=== PATIENT | female | born 1965 | race African-American/Black ===

== ENCOUNTER 2020-12-10 17:18 | Observation (INO) ==
[2020-12-10 20:03] LABS: Basophils # 0.1 10*3/uL (0.0-0.2); Basophils % 0.6 % (0.0-0.8); Eosinophils # 0.7 10*3/uL (0.0-0.87); Eosinophils % 5.4 % (0.00-10.9); Hematocrit 44.8 VOL% (35.7-47.0); Hemoglobin 14.7 GM/DL (12.0-16.0); Immature Granulocytes % 0.6 %; Immature Granulocytes Absolute 0.07 #; Lymphocytes # 1.5 10*3/uL (1.4-4.0); Lymphocytes % 11.9 % (21.3-54.2); Mean Corpuscular HGB Conc 32.8 GM/DL (32-36); Mean Corpuscular Volume 80.9 FL (87-102); Neutrophils % 73.5 % (38.7-73.9); Platelet Count 304 T/CUMM (130-400); Red Blood Count 5.54 MC/CUMM (3.8-5.5); Red Cell Distribution Width 13.2 % (9.3-17.3); White Blood Count 12.4 T/CUMM (4-12)
[2020-12-10] MEDS ORDERED: MORPHINE 4 MG/1 ML VIAL IV STA (20:19)
[2020-12-10] MEDS ORDERED: ONDANSETRON 4 MG/2 ML VIAL IV STA (20:19)
[2020-12-10 20:25] LABS: Albumin 3.6 G/DL (3.4-5.0); Bilirubin,Total 0.4 MG/DL (0.2-1.0); Calcium 9.7 MG/DL (8.5-10.1); Osmolality,Calculated 265.4 MOS/KG (273-304); Potassium 3.6 MMOL/L (3.5-5.1); Total Protein 8.8 G/DL (6.4-8.2)
[2020-12-10 20:39] LABS: PT Patient Result 11.7 SECS (10.5-12.0)
[2020-12-10] MEDS ORDERED: GLUCAGON 1 MG VIAL IM PRN (23:33)
[2020-12-10] MEDS ORDERED: DEXTROSE 50% 25 GM/50 ML VIAL IV PRN (23:33)
[2020-12-10] MEDS ORDERED: ENOXAPARIN 100 MG/ML SYRINGE SUBCUT STA (23:33)
[2020-12-11] MEDS: ONDANSETRON 4 MG/2 ML VIAL IV PRN ×3 (00:40→16:54)
[2020-12-11 09:40] LABS: Basophils # 0.1 10*3/uL (0.0-0.2); Basophils % 0.5 % (0.0-0.8); Eosinophils # 0.4 10*3/uL (0.0-0.87); Eosinophils % 3.8 % (0.00-10.9); Hematocrit 42.1 VOL% (35.7-47.0); Hemoglobin 13.5 GM/DL (12.0-16.0); Immature Granulocytes % 0.6 %; Immature Granulocytes Absolute 0.07 #; Lymphocytes # 1.1 10*3/uL (1.4-4.0); Lymphocytes % 9.3 % (21.3-54.2); Mean Corpuscular HGB Conc 32.1 GM/DL (32-36); Mean Corpuscular Volume 81.7 FL (87-102); Mean Platelet Volume 9.3 FL (9.6-12.0); Neutrophils % 78.8 % (38.7-73.9); Platelet Count 318 T/CUMM (130-400); Red Blood Count 5.15 MC/CUMM (3.8-5.5); Red Cell Distribution Width 13.2 % (9.3-17.3); White Blood Count 11.7 T/CUMM (4-12)
[2020-12-11 09:58] LABS: Albumin 3.1 G/DL (3.4-5.0); Bilirubin,Total 0.4 MG/DL (0.2-1.0); Calcium 9.9 MG/DL (8.5-10.1); Osmolality,Calculated 269.2 MOS/KG (273-304); Potassium 4.6 MMOL/L (3.5-5.1); Total Protein 7.7 G/DL (6.4-8.2)
[2020-12-11] MEDS: ENOXAPARIN 60 MG/0.6 ML SYRINGE SUBCUT SCH ×2 (11:10→23:17)
[2020-12-11] MEDS: MORPHINE 4 MG/1 ML VIAL IV PRN ×2 (16:54→18:01)
[2020-12-12] MEDS ORDERED: METOPROLOL SUCCINATE XL 25 MG TABLET PO SCH (09:00)
[2020-12-12] MEDS ORDERED: PANTOPRAZOLE 40 MG TABLET PO SCH (09:00)
[2020-12-12] MEDS ORDERED: FUROSEMIDE 40 MG/4 ML VIAL IV ONE (10:12)
[2020-12-12] MEDS ORDERED: methylPREDNISolone SOD SUC 40 MG/1 ML VIAL IV SCH (10:30)
[2020-12-12] MEDS: ENOXAPARIN 60 MG/0.6 ML SYRINGE SUBCUT SCH (10:34)
[2020-12-12 11:29] VITALS: BP 128/77
== END 2020-12-12 14:05 | disposition home or self-care (01) ==
LOC: N.ED 17:18 → N.EDINP 17:18 → N.4E 12-11 07:14
PROVIDERS: ADMIT Family Medicine; ATTEND Family Medicine

== ENCOUNTER 2020-12-24 20:02 | Inpatient (IN) ==
[2020-12-24 20:31] LABS: Basophils # 0.1 10*3/uL (0.0-0.2); Basophils % 0.3 % (0.0-0.8); Eosinophils # 1.2 10*3/uL (0.0-0.87); Hematocrit 39.1 VOL% (35.7-47.0); Hemoglobin 12.5 GM/DL (12.0-16.0); Immature Granulocytes % 0.8 %; Immature Granulocytes Absolute 0.14 #; Lymphocytes # 1.6 10*3/uL (1.4-4.0); Lymphocytes % 9.3 % (21.3-54.2); Mean Corpuscular Volume 81.3 FL (87-102); Mean Platelet Volume 9.5 FL (9.6-12.0); Monocytes % 7.5 % (1.7-12.7); Neutrophils % 75.1 % (38.7-73.9); Platelet Count 85 T/CUMM (130-400); Red Blood Count 4.81 MC/CUMM (3.8-5.5); Red Cell Distribution Width 13.9 % (9.3-17.3); White Blood Count 17.1 T/CUMM (4-12)
[2020-12-24 20:47] LABS: Albumin 2.4 G/DL (3.4-5.0); Bilirubin,Total 0.4 MG/DL (0.2-1.0); Osmolality,Calculated 269.4 MOS/KG (273-304); Potassium 4.9 MMOL/L (3.5-5.1)
[2020-12-24] MEDS ORDERED: ALBUTEROL/IPRATROPIUM 3 ML NEB RESP TX STA (20:53)
[2020-12-24] MEDS ORDERED: MORPHINE 4 MG/1 ML VIAL IV STA (20:53)
[2020-12-24] MEDS ORDERED: PIPERACILLIN/TAZOBACTAM 3,375 MG in SODIUM CHLORIDE 0.9% 100 ML IV STA (20:53)
[2020-12-24] MEDS ORDERED: FUROSEMIDE 40 MG/4 ML VIAL IV STA (20:53)
[2020-12-24] MEDS ORDERED: methylPREDNISolone SOD SUC 125 MG/2 ML VIAL IV STA (20:53)
[2020-12-24] MEDS ORDERED: ONDANSETRON 4 MG/2 ML VIAL IV STA (20:53)
[2020-12-24 21:18] LABS: INR 1.3; PT Patient Result 14.1 SECS (10.5-12.0)
[2020-12-24 21:46] LABS: Allen Test Positive
[2020-12-24 21:47] LABS: ABG HCO3 24.5 MMOL/L (20-26); ABG Oxygen Saturation 60.1 % (95-100); ABG PCO2 36.3 MM HG (35-48); ABG PH 7.443 (7.35-7.45); ABG TCO2 22.1 MMOL/L (23-27)
[2020-12-24 21:50] LABS: ABG PO2 32.8 MM HG (80-95)
[2020-12-24] MEDS ORDERED: ALBUTEROL/IPRATROPIUM 3 ML NEB RESP TX PRN (23:21)
[2020-12-24] MEDS ORDERED: GLUCAGON 1 MG VIAL IM PRN (23:25)
[2020-12-24] MEDS ORDERED: DEXTROSE 50% 25 GM/50 ML VIAL IV PRN (23:25)
[2020-12-24] MEDS ORDERED: ACETAMINOPHEN 325 MG TABLET PO PRN (23:26)
[2020-12-24] MEDS ORDERED: DOCUSATE SODIUM 100 MG CAPSULE PO PRN (23:26)
[2020-12-24] MEDS ORDERED: hydrALAZINE 20 MG/1 ML VIAL IV PRN (23:26)
[2020-12-24] MEDS ORDERED: SODIUM CHLORIDE 0.9% 1,000 ML IV SCH (23:30)
[2020-12-24] MEDS ORDERED: LEVOFLOXACIN INJ 750 MG/150 ML PREMIX IV SCH (23:30)
[2020-12-25] MEDS: ONDANSETRON 4 MG/2 ML VIAL IV PRN ×3 (00:05→20:42)
[2020-12-25] MEDS ORDERED: NITROGLYCERIN SL 0.4 MG TABLET SL PRN (02:00)
[2020-12-25] MEDS ORDERED: CYCLOBENZAPRINE 10 MG TABLET PO PRN (02:00)
[2020-12-25 02:17] LABS: Basophils % 0.3 % (0.0-0.8); Eosinophils # 0.1 10*3/uL (0.0-0.87); Eosinophils % 0.3 % (0.00-10.9); Hematocrit 37.4 VOL% (35.7-47.0); Immature Granulocytes Absolute 0.14 #; Lymphocytes # 0.8 10*3/uL (1.4-4.0); Lymphocytes % 5.7 % (21.3-54.2); Mean Corpuscular HGB Conc 32.1 GM/DL (32-36); Mean Corpuscular Volume 81.8 FL (87-102); Mean Platelet Volume 11.1 FL (9.6-12.0); Monocytes % 1.3 % (1.7-12.7); Neutrophils % 91.4 % (38.7-73.9); Platelet Count 66 T/CUMM (130-400); Red Blood Count 4.57 MC/CUMM (3.8-5.5); White Blood Count 14.7 T/CUMM (4-12)
[2020-12-25 02:37] LABS: Albumin 2.3 G/DL (3.4-5.0); Bilirubin,Total 0.4 MG/DL (0.2-1.0); Calcium 9.2 MG/DL (8.5-10.1); Osmolality,Calculated 272.2 MOS/KG (273-304); Potassium 4.9 MMOL/L (3.5-5.1); Total Protein 6.9 G/DL (6.4-8.2)
[2020-12-25 02:42] LABS: Lymphocytes 2 % (20-55); Microcytosis Slight; Platelet Estimate Decreased; Segmented Neutrophils 95 % (50-85); Total Cells Counted 100
[2020-12-25] MEDS: SODIUM CHLORIDE 0.9% 1,000 ML IV SCH ×3 (03:28→20:46)
[2020-12-25] MEDS: PIPERACILLIN/TAZOBACTAM 3,375 MG in SODIUM CHLORIDE 0.9% 100 ML IV SCH ×3 (06:03→20:46)
[2020-12-25] MEDS ORDERED: FUROSEMIDE 20 MG/2 ML VIAL IV SCH ×2 (08:00→09:00)
[2020-12-25] MEDS ORDERED: APIXABAN 5 MG TABLET PO SCH (09:00)
[2020-12-25] MEDS: TRIAMCINOLONE 0.1% CREAM 15 GM TUBE TOP SCH (09:14)
[2020-12-25] MEDS: PANTOPRAZOLE 40 MG TABLET PO SCH (09:14)
[2020-12-25 09:37] LABS: Bilirubin,Urine Negative (Negative); Blood, Urine Small mg/dL (Negative); Glucose,Urine (UA) Negative (Negative); Ketones,Urine Negative (Negative); Mucus,Urine Occasional /LPF (Occasional); Nitrite,Urine Negative (Negative); Protein,Urine Negative; RBC,Urine 3 /HPF (0-4); Squamous Epithelial Cell,Urine Few /HPF (0-10); Urine Appearance CLEAR (Clear); Urine Color Yellow (Yellow); Urine Specific Gravity 1.014 (1.001-1.035); Urine Urobilinogen < 2.0 EU/DL (0.2-1.0)
[2020-12-25] MEDS: ALBUTEROL/IPRATROPIUM 3 ML NEB RESP TX SCH ×2 (13:30→19:56)
[2020-12-25 14:57] LABS: ABG Base Excess -3.5 MMOL/L (-2.5-2.5); ABG HCO3 21.4 MMOL/L (20-26); ABG Oxygen Saturation 95.2 % (95-100); ABG PH 7.392 (7.35-7.45); ABG PO2 75.7 MM HG (80-95); ABG TCO2 18.5 MMOL/L (23-27)
[2020-12-25] MEDS: CETIRIZINE 10 MG TABLET PO SCH (20:44)
[2020-12-25] MEDS: GABAPENTIN 300 MG CAPSULE PO SCH (20:45)
[2020-12-25] MEDS ORDERED: METOPROLOL SUCCINATE XL 25 MG TABLET PO SCH (21:00)
[2020-12-26] MEDS: ALBUTEROL/IPRATROPIUM 3 ML NEB RESP TX SCH ×4 (00:35→19:38)
[2020-12-26] MEDS: SODIUM CHLORIDE 0.9% 1,000 ML IV SCH ×3 (04:30→20:51)
[2020-12-26 05:38] LABS: Basophils # 0.1 10*3/uL (0.0-0.2); Basophils % 0.3 % (0.0-0.8); Eosinophils # 0.8 10*3/uL (0.0-0.87); Eosinophils % 4.2 % (0.00-10.9); Hematocrit 32.8 VOL% (35.7-47.0); Hemoglobin 10.4 GM/DL (12.0-16.0); Immature Granulocytes % 1.9 %; Immature Granulocytes Absolute 0.36 #; Lymphocytes # 1.7 10*3/uL (1.4-4.0); Lymphocytes % 8.6 % (21.3-54.2); Mean Corpuscular HGB Conc 31.7 GM/DL (32-36); Mean Corpuscular Volume 82.4 FL (87-102); Monocytes % 8.4 % (1.7-12.7); NRBC # 0.02 10*3/uL; Neutrophils % 76.6 % (38.7-73.9); Red Blood Count 3.98 MC/CUMM (3.8-5.5); Red Cell Distribution Width 14.5 % (9.3-17.3); White Blood Count 19.3 T/CUMM (4-12)
[2020-12-26 05:48] LABS: Platelet Count 47 T/CUMM (130-400)
[2020-12-26 06:00] LABS: Albumin 2.2 G/DL (3.4-5.0); Bilirubin,Total 0.8 MG/DL (0.2-1.0); Calcium 8.8 MG/DL (8.5-10.1); Osmolality,Calculated 276.7 MOS/KG (273-304); Potassium 5.1 MMOL/L (3.5-5.1); Total Protein 6.1 G/DL (6.4-8.2)
[2020-12-26 06:18] LABS: Anisocytosis 1+; Platelet Estimate Decreased
[2020-12-26 06:19] LABS: Burr Cells Few; Poikilocytosis Slight
[2020-12-26] MEDS: PIPERACILLIN/TAZOBACTAM 3,375 MG in SODIUM CHLORIDE 0.9% 100 ML IV SCH ×3 (06:41→20:53)
[2020-12-26] MEDS: PANTOPRAZOLE 40 MG TABLET PO SCH (09:09)
[2020-12-26] MEDS: TRIAMCINOLONE 0.1% CREAM 15 GM TUBE TOP SCH (09:09)
[2020-12-26] MEDS: MORPHINE 4 MG/1 ML VIAL IV PRN ×3 (10:22→20:52)
[2020-12-26] MEDS: ONDANSETRON 4 MG/2 ML VIAL IV PRN ×3 (10:26→20:52)
[2020-12-26 16:22] LABS: Glucose,Pleural Fluid < 2 MG/DL; LDH,Body Fluid > 4000 U/L; Total Protein,Body Fluid 4.4 G/DL
[2020-12-26 16:53] LABS: RBC,Pleural Fluid > 100000 T/CUMM
[2020-12-26 18:28] LABS: Eosinophils,Pleural Fluid 4 %; Lymphocytes,Pleural Fluid 13 %; Monocytes,Pleural Fluid 15 %; Neutrophils,Pleural Fluid 68 %
[2020-12-26] MEDS: METOPROLOL SUCCINATE XL 25 MG TABLET PO SCH (20:51)
[2020-12-26] MEDS: GABAPENTIN 300 MG CAPSULE PO SCH (20:51)
[2020-12-26] MEDS: CETIRIZINE 10 MG TABLET PO SCH (20:52)
[2020-12-27] MEDS: ALBUTEROL/IPRATROPIUM 3 ML NEB RESP TX SCH ×4 (01:13→19:54)
[2020-12-27 02:07] LABS: Basophils # 0.1 10*3/uL (0.0-0.2); Basophils % 0.4 % (0.0-0.8); Eosinophils # 1.5 10*3/uL (0.0-0.87); Hemoglobin 9.8 GM/DL (12.0-16.0); Immature Granulocytes % 1.9 %; Immature Granulocytes Absolute 0.32 #; Lymphocytes # 1.4 10*3/uL (1.4-4.0); Lymphocytes % 8.3 % (21.3-54.2); Mean Corpuscular HGB Conc 31.6 GM/DL (32-36); Mean Corpuscular Volume 82.7 FL (87-102); NRBC # 0.03 10*3/uL; Neutrophils % 72.4 % (38.7-73.9); Platelet Count 45 T/CUMM (130-400); Red Blood Count 3.75 MC/CUMM (3.8-5.5); Red Cell Distribution Width 14.6 % (9.3-17.3); White Blood Count 16.4 T/CUMM (4-12)
[2020-12-27 02:34] LABS: Calcium 8.2 MG/DL (8.5-10.1); Osmolality,Calculated 266.4 MOS/KG (273-304); Potassium 4.9 MMOL/L (3.5-5.1)
[2020-12-27] MEDS: SODIUM CHLORIDE 0.9% 1,000 ML IV SCH (03:13)
[2020-12-27] MEDS: MORPHINE 4 MG/1 ML VIAL IV PRN (05:45)
[2020-12-27] MEDS: PIPERACILLIN/TAZOBACTAM 3,375 MG in SODIUM CHLORIDE 0.9% 100 ML IV SCH ×3 (05:49→20:50)
[2020-12-27] MEDS: METOPROLOL SUCCINATE XL 25 MG TABLET PO SCH ×2 (09:10→20:50)
[2020-12-27] MEDS: PANTOPRAZOLE 40 MG TABLET PO SCH (09:11)
[2020-12-27] MEDS: TRIAMCINOLONE 0.1% CREAM 15 GM TUBE TOP SCH (09:13)
[2020-12-27] MEDS: GABAPENTIN 300 MG CAPSULE PO SCH (20:50)
[2020-12-27] MEDS: CETIRIZINE 10 MG TABLET PO SCH (20:50)
[2020-12-27] MEDS: APIXABAN 5 MG TABLET PO SCH (20:50)
[2020-12-28] MEDS: ALBUTEROL/IPRATROPIUM 3 ML NEB RESP TX SCH ×2 (01:54→07:40)
[2020-12-28] MEDS: PIPERACILLIN/TAZOBACTAM 3,375 MG in SODIUM CHLORIDE 0.9% 100 ML IV SCH (04:18)
[2020-12-28 05:22] LABS: Basophils # 0.1 10*3/uL (0.0-0.2); Basophils % 0.4 % (0.0-0.8); Hematocrit 28.6 VOL% (35.7-47.0); Hemoglobin 9.4 GM/DL (12.0-16.0); Immature Granulocytes % 1.4 %; Immature Granulocytes Absolute 0.22 #; Lymphocytes # 1.2 10*3/uL (1.4-4.0); Lymphocytes % 7.3 % (21.3-54.2); Mean Corpuscular HGB Conc 32.9 GM/DL (32-36); Mean Corpuscular Volume 79.9 FL (87-102); Mean Platelet Volume 10.6 FL (9.6-12.0); Monocytes % 7.3 % (1.7-12.7); NRBC # 0.02 10*3/uL; Neutrophils % 77.6 % (38.7-73.9); Platelet Count 57 T/CUMM (130-400); Red Blood Count 3.58 MC/CUMM (3.8-5.5); Red Cell Distribution Width 14.5 % (9.3-17.3); White Blood Count 15.8 T/CUMM (4-12)
[2020-12-28 05:44] LABS: Calcium 8.6 MG/DL (8.5-10.1); Osmolality,Calculated 267.2 MOS/KG (273-304); Potassium 4.5 MMOL/L (3.5-5.1)
[2020-12-28 06:04] LABS: Anisocytosis 1+; Platelet Estimate Decreased
[2020-12-28] MEDS: APIXABAN 5 MG TABLET PO SCH (08:58)
[2020-12-28] MEDS: METOPROLOL SUCCINATE XL 25 MG TABLET PO SCH (08:58)
[2020-12-28] MEDS: PANTOPRAZOLE 40 MG TABLET PO SCH (08:59)
[2020-12-28] MEDS: TRIAMCINOLONE 0.1% CREAM 15 GM TUBE TOP SCH (08:59)
[2020-12-28 12:34] VITALS: BP 124/65
[2021-01-03] MEDS ORDERED: APIXABAN 5 MG TABLET PO SCH (21:00)
== END 2020-12-28 12:41 | disposition home or self-care (01) | DRG 720 ==
LOC: N.ED 20:02 → N.EDINP 21:30 → SUATTDRO 21:30 → N.EDINP 23:10 → N.4E 23:11
PROVIDERS: ADMIT Internal Medicine; ATTEND Internal Medicine Nephrology
PROC: IRTHORA (2020-12-26 15:00)

== ENCOUNTER 2020-12-29 16:56 | Inpatient (IN) ==
[2020-12-29 18:41] LABS: Basophils # 0.1 10*3/uL (0.0-0.2); Basophils % 0.4 % (0.0-0.8); Eosinophils # 0.6 10*3/uL (0.0-0.87); Eosinophils % 3.4 % (0.00-10.9); Hematocrit 33.8 VOL% (35.7-47.0); Hemoglobin 10.7 GM/DL (12.0-16.0); Immature Granulocytes % 1.5 %; Immature Granulocytes Absolute 0.27 #; Lymphocytes # 1.4 10*3/uL (1.4-4.0); Lymphocytes % 7.9 % (21.3-54.2); Mean Corpuscular HGB Conc 31.7 GM/DL (32-36); Mean Corpuscular Volume 82.6 FL (87-102); Mean Platelet Volume 11.1 FL (9.6-12.0); Monocytes % 8.1 % (1.7-12.7); NRBC # 0.03 10*3/uL; Neutrophils % 78.7 % (38.7-73.9); Platelet Count 147 T/CUMM (130-400); Red Blood Count 4.09 MC/CUMM (3.8-5.5); Red Cell Distribution Width 14.9 % (9.3-17.3); White Blood Count 18.2 T/CUMM (4-12)
[2020-12-29 18:51] LABS: INR 1.2; PT Patient Result 13.5 SECS (10.5-12.0); Partial Thromboplastin Time 30.6 SECS (23.9-33.8)
[2020-12-29 19:05] LABS: Albumin 2.3 G/DL (3.4-5.0); Bilirubin,Total 0.9 MG/DL (0.2-1.0); Calcium 9.2 MG/DL (8.5-10.1); Osmolality,Calculated 266.2 MOS/KG (273-304); Total Protein 6.9 G/DL (6.4-8.2)
[2020-12-29 19:07] LABS: Bilirubin,Urine Negative (Negative); Blood, Urine Negative (Negative); Glucose,Urine (UA) Negative (Negative); Ketones,Urine Negative (Negative); Nitrite,Urine Negative (Negative); Protein,Urine Negative; RBC,Urine 1 /HPF (0-4); Urine Appearance CLEAR (Clear); Urine Color Straw (Yellow); Urine Specific Gravity 1.004 (1.001-1.035); Urine Urobilinogen < 2.0 EU/DL (0.2-1.0)
[2020-12-29 19:10] LABS: Potassium 6.1 MMOL/L (3.5-5.1)
[2020-12-29] MEDS ORDERED: SODIUM CHLORIDE 0.9% 1,000 ML IV STA (19:24)
[2020-12-29] MEDS ORDERED: DEXTROSE 50% 25 GM/50 ML VIAL IV PRN (21:27)
[2020-12-29] MEDS ORDERED: GLUCAGON 1 MG VIAL IM PRN (21:27)
[2020-12-29] MEDS ORDERED: DOCUSATE SODIUM 100 MG CAPSULE PO PRN (21:27)
[2020-12-29] MEDS: PIPERACILLIN/TAZOBACTAM 3,375 MG in SODIUM CHLORIDE 0.9% 100 ML IV SCH (22:48)
[2020-12-29] MEDS: ENOXAPARIN 80 MG/0.8 ML SYRINGE SUBCUT SCH (22:49)
[2020-12-29] MEDS ORDERED: ASPIRIN 300 MG SUPP RECTAL ONE (23:13)
[2020-12-29] MEDS: METOPROLOL TARTRATE 5 MG/5 ML VIAL IV SCH (23:25)
[2020-12-30] MEDS: ONDANSETRON 4 MG/2 ML VIAL IV PRN ×6 (00:06→23:50)
[2020-12-30] MEDS: MORPHINE 4 MG/1 ML VIAL IV PRN ×6 (00:07→23:49)
[2020-12-30] MEDS: SODIUM CHLORIDE 0.9% 1,000 ML IV SCH (03:24)
[2020-12-30 04:43] LABS: Basophils # 0.1 10*3/uL (0.0-0.2); Basophils % 0.3 % (0.0-0.8); Eosinophils # 0.6 10*3/uL (0.0-0.87); Eosinophils % 3.5 % (0.00-10.9); Hematocrit 30.9 VOL% (35.7-47.0); Hemoglobin 9.6 GM/DL (12.0-16.0); Immature Granulocytes % 1.2 %; Immature Granulocytes Absolute 0.21 #; Lymphocytes # 0.7 10*3/uL (1.4-4.0); Lymphocytes % 4.1 % (21.3-54.2); Mean Corpuscular HGB Conc 31.1 GM/DL (32-36); Mean Corpuscular Volume 83.5 FL (87-102); Mean Platelet Volume 10.9 FL (9.6-12.0); NRBC # 0.03 10*3/uL; Neutrophils % 87.9 % (38.7-73.9); Platelet Count 177 T/CUMM (130-400); Red Cell Distribution Width 14.8 % (9.3-17.3); White Blood Count 17.9 T/CUMM (4-12)
[2020-12-30 05:06] LABS: Bilirubin,Total 0.8 MG/DL (0.2-1.0); Calcium 8.7 MG/DL (8.5-10.1); Osmolality,Calculated 268.1 MOS/KG (273-304); Potassium 4.7 MMOL/L (3.5-5.1); Total Protein 6.2 G/DL (6.4-8.2)
[2020-12-30 05:34] LABS: Risk Ratio 3.05
[2020-12-30 05:38] LABS: Eosinophils 1 % (0-10); Hypochromasia 2+; Lymphocytes 3 % (20-55); Platelet Estimate Normal; Segmented Neutrophils 93 % (50-85); Total Cells Counted 100
[2020-12-30] MEDS: PIPERACILLIN/TAZOBACTAM 3,375 MG in SODIUM CHLORIDE 0.9% 100 ML IV SCH ×3 (05:56→21:49)
[2020-12-30] MEDS: METOPROLOL TARTRATE 5 MG/5 ML VIAL IV SCH ×4 (05:56→23:31)
[2020-12-30] MEDS: PANTOPRAZOLE 40 MG VIAL IV SCH (08:09)
[2020-12-30] MEDS: ENOXAPARIN 80 MG/0.8 ML SYRINGE SUBCUT SCH ×2 (14:53→21:49)
[2020-12-30] MEDS ORDERED: KETOROLAC 15 MG/1 ML VIAL IV ONE (16:25)
[2020-12-30 18:40] LABS: Bilirubin,Urine Negative (Negative); Blood, Urine Negative (Negative); Glucose,Urine (UA) Negative (Negative); Ketones,Urine 5 mg/dL (Negative); Mucus,Urine Occasional /LPF (Occasional); Nitrite,Urine Negative (Negative); Protein,Urine 100 MG/DL; RBC,Urine 3 /HPF (0-4); Squamous Epithelial Cell,Urine Occasional /HPF (0-10); Urine Appearance CLEAR (Clear); Urine Color Amber (Yellow); Urine Urobilinogen < 2.0 EU/DL (0.2-1.0)
[2020-12-30] MEDS ORDERED: diphenhydrAMINE 50 MG/1 ML VIAL ONE (22:11)
[2020-12-31 05:08] LABS: Basophils # 0.1 10*3/uL (0.0-0.2); Basophils % 0.3 % (0.0-0.8); Eosinophils # 0.7 10*3/uL (0.0-0.87); Eosinophils % 4.5 % (0.00-10.9); Hemoglobin 9.2 GM/DL (12.0-16.0); Immature Granulocytes % 1.3 %; Lymphocytes # 0.8 10*3/uL (1.4-4.0); Mean Corpuscular HGB Conc 31.7 GM/DL (32-36); Mean Corpuscular Volume 83.8 FL (87-102); Mean Platelet Volume 10.5 FL (9.6-12.0); Monocytes % 6.2 % (1.7-12.7); NRBC # 0.04 10*3/uL; Neutrophils % 82.7 % (38.7-73.9); Platelet Count 203 T/CUMM (130-400); Red Blood Count 3.46 MC/CUMM (3.8-5.5); Red Cell Distribution Width 15.3 % (9.3-17.3); White Blood Count 15.2 T/CUMM (4-12)
[2020-12-31 05:39] LABS: Calcium 8.9 MG/DL (8.5-10.1); Osmolality,Calculated 274.8 MOS/KG (273-304); Potassium 4.5 MMOL/L (3.5-5.1)
[2020-12-31 05:42] LABS: Albumin 1.9 G/DL (3.4-5.0); Bilirubin,Total 0.8 MG/DL (0.2-1.0); Calcium 8.9 MG/DL (8.5-10.1); Potassium 4.4 MMOL/L (3.5-5.1); Total Protein 6.1 G/DL (6.4-8.2)
[2020-12-31] MEDS: SODIUM CHLORIDE 0.9% 1,000 ML IV SCH ×2 (06:21→12:40)
[2020-12-31] MEDS: METOPROLOL TARTRATE 5 MG/5 ML VIAL IV SCH ×3 (06:21→17:28)
[2020-12-31] MEDS: PIPERACILLIN/TAZOBACTAM 3,375 MG in SODIUM CHLORIDE 0.9% 100 ML IV SCH ×3 (06:26→21:42)
[2020-12-31] MEDS: MORPHINE 4 MG/1 ML VIAL IV PRN ×3 (08:54→19:48)
[2020-12-31] MEDS: PANTOPRAZOLE 40 MG VIAL IV SCH (08:59)
[2020-12-31] MEDS: ONDANSETRON 4 MG/2 ML VIAL IV PRN ×3 (08:59→19:35)
[2020-12-31] MEDS ORDERED: MYLANTA/LIDO VISC 2:1 300 ML BOTTLE SWISH/SWAL PRN (10:01)
[2020-12-31] MEDS ORDERED: chlorproMAZINE INJ 50 MG in SODIUM CHLORIDE 0.9% 100 ML IV PRN (10:01)
[2020-12-31] MEDS ORDERED: LOPERAMIDE 2 MG CAPSULE PO PRN ×2 (10:01)
[2020-12-31] MEDS ORDERED: LACTULOSE 20 GM/30 ML UDCUP PO PRN (10:01)
[2020-12-31] MEDS ORDERED: PROMETHAZINE INJ 25 MG in SODIUM CHLORIDE 0.9% 50 ML IV PRN (10:01)
[2020-12-31] MEDS ORDERED: guaiFENesin 200 MG/10 ML UDCUP PO PRN (10:01)
[2020-12-31] MEDS ORDERED: chlorproMAZINE INJ 25 MG in SODIUM CHLORIDE 0.9% 100 ML IV PRN (10:01)
[2020-12-31] MEDS ORDERED: MYLANTA/LIDO VISC 2:1 300 ML BOTTLE SWISH/SPIT PRN (10:01)
[2020-12-31] MEDS ORDERED: TEMAZEPAM 7.5 MG CAPSULE PO PRN (10:01)
[2020-12-31] MEDS ORDERED: ALPRAZolam 0.25 MG TABLET PO PRN (10:01)
[2020-12-31] MEDS ORDERED: ALUMINUM/MAGNES/SIMETH MAX STR 30 ML UDCUP PO PRN (10:01)
[2020-12-31] MEDS ORDERED: diphenhydrAMINE CAP 25 MG CAPSULE ONE (10:06)
[2020-12-31] MEDS: ENOXAPARIN 80 MG/0.8 ML SYRINGE SUBCUT SCH ×2 (10:10→22:16)
[2020-12-31] MEDS: diphenhydrAMINE CAP 25 MG CAPSULE PO PRN ×2 (10:10→14:30)
[2020-12-31] MEDS ORDERED: ALBUTEROL/IPRATROPIUM 3 ML NEB RESP TX PRN (10:40)
[2020-12-31 11:45] LABS: INR 1.2; PT Patient Result 13.2 SECS (10.5-12.0)
[2020-12-31] MEDS: KETOROLAC 30 MG/1 ML VIAL IV PRN (21:44)
[2020-12-31 22:08] LABS: RBC,Pleural Fluid > 100000 T/CUMM
[2020-12-31 22:25] LABS: Eosinophils,Pleural Fluid 2 %; Lymphocytes,Pleural Fluid 6 %; Monocytes,Pleural Fluid 10 %; Neutrophils,Pleural Fluid 80 %
[2020-12-31 23:27] LABS: Amylase,Body Fluid 203 U/L; Glucose,Pleural Fluid < 1 MG/DL; Total Protein,Body Fluid 3.9 G/DL
[2021-01-01 00:28] LABS: LDH,Body Fluid 4496 U/L
[2021-01-01] MEDS: METOPROLOL TARTRATE 5 MG/5 ML VIAL IV SCH ×4 (00:51→17:31)
[2021-01-01 05:26] LABS: Basophils % 0.3 % (0.0-0.8); Eosinophils # 1.4 10*3/uL (0.0-0.87); Hematocrit 26.4 VOL% (35.7-47.0); Hemoglobin 8.5 GM/DL (12.0-16.0); Immature Granulocytes % 1.8 %; Immature Granulocytes Absolute 0.23 #; Lymphocytes # 0.9 10*3/uL (1.4-4.0); Lymphocytes % 7.3 % (21.3-54.2); Mean Corpuscular HGB Conc 32.2 GM/DL (32-36); Mean Corpuscular Volume 82.2 FL (87-102); Monocytes % 8.3 % (1.7-12.7); NRBC # 0.17 10*3/uL; Neutrophils % 71.3 % (38.7-73.9); Platelet Count 224 T/CUMM (130-400); Red Blood Count 3.21 MC/CUMM (3.8-5.5); Red Cell Distribution Width 15.3 % (9.3-17.3); White Blood Count 12.5 T/CUMM (4-12)
[2021-01-01] MEDS: SODIUM CHLORIDE 0.9% 1,000 ML IV SCH ×3 (05:40→19:18)
[2021-01-01] MEDS: PIPERACILLIN/TAZOBACTAM 3,375 MG in SODIUM CHLORIDE 0.9% 100 ML IV SCH ×3 (05:41→21:13)
[2021-01-01] MEDS: MORPHINE 4 MG/1 ML VIAL IV PRN (05:42)
[2021-01-01 05:43] LABS: Calcium 8.5 MG/DL (8.5-10.1); Osmolality,Calculated 279.5 MOS/KG (273-304); Potassium 4.5 MMOL/L (3.5-5.1)
[2021-01-01] MEDS: ONDANSETRON 4 MG/2 ML VIAL IV PRN ×3 (05:44→21:13)
[2021-01-01 05:47] LABS: Eosinophils 10 % (0-10); Hypochromasia 1+; Lymphocytes 8 % (20-55); Microcytosis 1+; Nucleated Red Blood Cells 2 (0-5); Platelet Estimate Adequate; Segmented Neutrophils 78 % (50-85); Total Cells Counted 100
[2021-01-01] MEDS ORDERED: APIXABAN 5 MG TABLET PO SCH (09:00)
[2021-01-01] MEDS: PANTOPRAZOLE 40 MG VIAL IV SCH (09:48)
[2021-01-01] MEDS: KETOROLAC 30 MG/1 ML VIAL IV PRN (10:25)
[2021-01-01] MEDS: diphenhydrAMINE CAP 25 MG CAPSULE PO PRN (10:27)
[2021-01-01] MEDS: ENOXAPARIN 80 MG/0.8 ML SYRINGE SUBCUT SCH ×2 (10:27→21:13)
[2021-01-01] MEDS ORDERED: IBUPROFEN 600 MG TABLET PO PRN (12:21)
[2021-01-01] MEDS: CETIRIZINE 10 MG TABLET PO SCH (17:29)
[2021-01-01] MEDS ORDERED: CARBOXYMETHYLCELLULOSE 1% OPH SOLN BOTH EYES PRN (17:40)
[2021-01-01] MEDS: HYDROCORTISONE 1% CREAM 28 GM TUBE TOP SCH (21:13)
[2021-01-02] MEDS: METOPROLOL TARTRATE 5 MG/5 ML VIAL IV SCH ×4 (00:30→18:03)
[2021-01-02] MEDS: PIPERACILLIN/TAZOBACTAM 3,375 MG in SODIUM CHLORIDE 0.9% 100 ML IV SCH ×2 (05:00→13:14)
[2021-01-02 05:26] LABS: Basophils % 0.2 % (0.0-0.8); Eosinophils # 1.2 10*3/uL (0.0-0.87); Eosinophils % 8.3 % (0.00-10.9); Hematocrit 25.7 VOL% (35.7-47.0); Hemoglobin 8.2 GM/DL (12.0-16.0); Immature Granulocytes % 1.4 %; Immature Granulocytes Absolute 0.21 #; Lymphocytes # 0.8 10*3/uL (1.4-4.0); Lymphocytes % 5.4 % (21.3-54.2); Mean Corpuscular HGB Conc 31.9 GM/DL (32-36); Mean Corpuscular Volume 83.4 FL (87-102); Monocytes % 4.7 % (1.7-12.7); NRBC # 0.15 10*3/uL; Platelet Count 239 T/CUMM (130-400); Red Blood Count 3.08 MC/CUMM (3.8-5.5); Red Cell Distribution Width 15.9 % (9.3-17.3); White Blood Count 14.6 T/CUMM (4-12)
[2021-01-02 05:52] LABS: Calcium 8.6 MG/DL (8.5-10.1); Osmolality,Calculated 276.5 MOS/KG (273-304); Potassium 4.1 MMOL/L (3.5-5.1)
[2021-01-02] MEDS: SODIUM CHLORIDE 0.9% 1,000 ML IV SCH ×2 (08:12→23:00)
[2021-01-02] MEDS: HYDROCORTISONE 1% CREAM 28 GM TUBE TOP SCH ×2 (08:13→21:15)
[2021-01-02] MEDS: PANTOPRAZOLE 40 MG VIAL IV SCH (08:13)
[2021-01-02] MEDS: CETIRIZINE 10 MG TABLET PO SCH (08:13)
[2021-01-02] MEDS: MAGNESIUM HYDROXIDE SUSP 30 ML UDCUP PO PRN (10:59)
[2021-01-02] MEDS: ONDANSETRON 4 MG/2 ML VIAL IV PRN ×2 (11:00→15:43)
[2021-01-02] MEDS: ENOXAPARIN 80 MG/0.8 ML SYRINGE SUBCUT SCH ×2 (17:20→21:14)
[2021-01-02] MEDS ORDERED: hydrOXYzine HCL 25 MG TABLET PO ONE (17:31)
[2021-01-02] MEDS ORDERED: DEXAMETHASONE INJ 10 MG in SODIUM CHLORIDE 0.9% 50 ML IV ONE (17:33)
[2021-01-03] MEDS: METOPROLOL TARTRATE 5 MG/5 ML VIAL IV SCH ×5 (00:10→23:00)
[2021-01-03] MEDS ORDERED: DEXAMETHASONE 10 MG/1 ML VIAL IV ONE (04:12)
[2021-01-03 05:22] LABS: Basophils % 0.1 % (0.0-0.8); Eosinophils % 0.1 % (0.00-10.9); Hematocrit 27.3 VOL% (35.7-47.0); Hemoglobin 8.6 GM/DL (12.0-16.0); Immature Granulocytes % 3.7 %; Immature Granulocytes Absolute 0.63 #; Lymphocytes # 0.8 10*3/uL (1.4-4.0); Lymphocytes % 4.4 % (21.3-54.2); Mean Corpuscular HGB Conc 31.5 GM/DL (32-36); Mean Corpuscular Volume 83.7 FL (87-102); Mean Platelet Volume 10.1 FL (9.6-12.0); Monocytes % 1.5 % (1.7-12.7); NRBC # 0.16 10*3/uL; Neutrophils % 90.2 % (38.7-73.9); Platelet Count 192 T/CUMM (130-400); Red Blood Count 3.26 MC/CUMM (3.8-5.5); Red Cell Distribution Width 16.5 % (9.3-17.3); White Blood Count 17.2 T/CUMM (4-12)
[2021-01-03 05:42] LABS: Hypochromasia 1+; Lymphocytes 2 % (20-55); Microcytosis 1+; Platelet Estimate Adequate; Segmented Neutrophils 97 % (50-85); Total Cells Counted 100
[2021-01-03 05:43] LABS: Calcium 8.4 MG/DL (8.5-10.1); Osmolality,Calculated 275.7 MOS/KG (273-304); Potassium 4.6 MMOL/L (3.5-5.1)
[2021-01-03] MEDS ORDERED: CEFEPIME 1,000 MG in SODIUM CHLORIDE 0.9% 100 ML IV SCH (08:30)
[2021-01-03] MEDS: HYDROCORTISONE 1% CREAM 28 GM TUBE TOP SCH ×2 (08:56→20:41)
[2021-01-03] MEDS: PANTOPRAZOLE 40 MG VIAL IV SCH (08:56)
[2021-01-03] MEDS: CETIRIZINE 10 MG TABLET PO SCH (08:57)
[2021-01-03] MEDS: SODIUM CHLORIDE 0.9% 1,000 ML IV SCH ×2 (10:43→23:02)
[2021-01-03] MEDS: ENOXAPARIN 80 MG/0.8 ML SYRINGE SUBCUT SCH ×3 (10:43→22:20)
[2021-01-03] MEDS: ONDANSETRON 4 MG/2 ML VIAL IV PRN (20:50)
[2021-01-03] MEDS: MORPHINE 4 MG/1 ML VIAL IV PRN (20:51)
[2021-01-04] MEDS: MORPHINE 4 MG/1 ML VIAL IV PRN ×3 (04:01→13:20)
[2021-01-04] MEDS: METOPROLOL TARTRATE 5 MG/5 ML VIAL IV SCH ×4 (05:07→23:30)
[2021-01-04 05:18] LABS: Basophils % 0.1 % (0.0-0.8); Eosinophils # 0.2 10*3/uL (0.0-0.87); Eosinophils % 0.9 % (0.00-10.9); Hematocrit 26.3 VOL% (35.7-47.0); Hemoglobin 8.3 GM/DL (12.0-16.0); Immature Granulocytes % 4.3 %; Immature Granulocytes Absolute 0.83 #; Lymphocytes # 1.3 10*3/uL (1.4-4.0); Lymphocytes % 6.6 % (21.3-54.2); Mean Corpuscular HGB Conc 31.6 GM/DL (32-36); Mean Corpuscular Volume 84.3 FL (87-102); Mean Platelet Volume 9.4 FL (9.6-12.0); Monocytes % 8.1 % (1.7-12.7); NRBC # 0.19 10*3/uL; Platelet Count 202 T/CUMM (130-400); Red Blood Count 3.12 MC/CUMM (3.8-5.5); White Blood Count 19.3 T/CUMM (4-12)
[2021-01-04 05:37] LABS: Calcium 8.2 MG/DL (8.5-10.1); Osmolality,Calculated 277.5 MOS/KG (273-304); Potassium 4.1 MMOL/L (3.5-5.1)
[2021-01-04 06:00] LABS: Lymphocytes 5 % (20-55); Nucleated Red Blood Cells 1 (0-5); Segmented Neutrophils 84 % (50-85); Total Cells Counted 100
[2021-01-04 06:01] LABS: Hypochromasia 1+; Microcytosis 1+; Polychromasia Slight
[2021-01-04 06:02] LABS: Ovalocytes Slight; Platelet Estimate Normal; Target Cells Slight
[2021-01-04] MEDS ORDERED: DOXYCYCLINE HYCLATE INJ 100 MG in SODIUM CHLORIDE 0.9% 100 ML IV SCH (08:30)
[2021-01-04] MEDS: ONDANSETRON 4 MG/2 ML VIAL IV PRN ×2 (08:51→13:20)
[2021-01-04] MEDS: PANTOPRAZOLE 40 MG VIAL IV SCH (08:52)
[2021-01-04] MEDS: HYDROCORTISONE 1% CREAM 28 GM TUBE TOP SCH ×3 (08:53→20:58)
[2021-01-04] MEDS: CETIRIZINE 10 MG TABLET PO SCH (08:53)
[2021-01-04] MEDS: CLINDAMYCIN INJ 600 MG/50 ML PREMIX IV SCH ×3 (08:57→23:32)
[2021-01-04] MEDS: ENOXAPARIN 80 MG/0.8 ML SYRINGE SUBCUT SCH ×3 (11:07→22:01)
[2021-01-04] MEDS: SODIUM CHLORIDE 0.9% 1,000 ML IV SCH (13:22)
[2021-01-04] MEDS ORDERED: diphenhydrAMINE CAP 25 MG CAPSULE PO ONE (17:25)
[2021-01-05] MEDS: SODIUM CHLORIDE 0.9% 1,000 ML IV SCH ×2 (03:19→17:44)
[2021-01-05 04:54] LABS: Basophils # 0.1 10*3/uL (0.0-0.2); Basophils % 0.3 % (0.0-0.8); Eosinophils # 1.3 10*3/uL (0.0-0.87); Eosinophils % 7.6 % (0.00-10.9); Hematocrit 27.1 VOL% (35.7-47.0); Hemoglobin 8.5 GM/DL (12.0-16.0); Immature Granulocytes Absolute 0.85 #; Lymphocytes # 1.6 10*3/uL (1.4-4.0); Lymphocytes % 9.1 % (21.3-54.2); Mean Corpuscular HGB Conc 31.4 GM/DL (32-36); Mean Corpuscular Volume 84.7 FL (87-102); Mean Platelet Volume 10.3 FL (9.6-12.0); Monocytes % 7.7 % (1.7-12.7); NRBC # 0.28 10*3/uL; Neutrophils % 70.3 % (38.7-73.9); Platelet Count 221 T/CUMM (130-400); White Blood Count 17.1 T/CUMM (4-12)
[2021-01-05 05:35] LABS: Eosinophils 5 % (0-10); Hypochromasia Slight; Lymphocytes 7 % (20-55); Microcytosis Slight; Nucleated Red Blood Cells 1 (0-5); Platelet Estimate Normal; Segmented Neutrophils 84 % (50-85); Total Cells Counted 100
[2021-01-05] MEDS: METOPROLOL TARTRATE 5 MG/5 ML VIAL IV SCH ×4 (05:47→22:55)
[2021-01-05 05:51] LABS: Calcium 8.4 MG/DL (8.5-10.1); Osmolality,Calculated 267.2 MOS/KG (273-304); Potassium 4.2 MMOL/L (3.5-5.1)
[2021-01-05] MEDS: CETIRIZINE 10 MG TABLET PO SCH (10:08)
[2021-01-05] MEDS: ENOXAPARIN 80 MG/0.8 ML SYRINGE SUBCUT SCH ×2 (10:08→22:55)
[2021-01-05] MEDS: CLINDAMYCIN INJ 600 MG/50 ML PREMIX IV SCH ×3 (10:08→23:36)
[2021-01-05] MEDS: HYDROCORTISONE 1% CREAM 28 GM TUBE TOP SCH ×2 (10:09→20:27)
[2021-01-05] MEDS: PANTOPRAZOLE 40 MG VIAL IV SCH (10:09)
[2021-01-05] MEDS: traMADol 50 MG TABLET PO PRN (14:14)
[2021-01-06] MEDS: MORPHINE 4 MG/1 ML VIAL IV PRN ×3 (03:20→15:16)
[2021-01-06 05:17] LABS: Calcium 8.3 MG/DL (8.5-10.1); Osmolality,Calculated 266.2 MOS/KG (273-304); Potassium 4.1 MMOL/L (3.5-5.1)
[2021-01-06] MEDS: METOPROLOL TARTRATE 5 MG/5 ML VIAL IV SCH ×3 (05:45→16:30)
[2021-01-06 07:45] LABS: Basophils # 0.1 10*3/uL (0.0-0.2); Basophils % 0.3 % (0.0-0.8); Eosinophils # 0.7 10*3/uL (0.0-0.87); Eosinophils % 3.8 % (0.00-10.9); Hematocrit 25.3 VOL% (35.7-47.0); Hemoglobin 8.1 GM/DL (12.0-16.0); Immature Granulocytes % 3.8 %; Immature Granulocytes Absolute 0.71 #; Lymphocytes # 1.7 10*3/uL (1.4-4.0); Lymphocytes % 8.9 % (21.3-54.2); Mean Corpuscular Volume 83.8 FL (87-102); Mean Platelet Volume 10.4 FL (9.6-12.0); NRBC # 0.38 10*3/uL; Neutrophils % 76.2 % (38.7-73.9); Platelet Count 217 T/CUMM (130-400); Red Blood Count 3.02 MC/CUMM (3.8-5.5); Red Cell Distribution Width 18.5 % (9.3-17.3); White Blood Count 18.5 T/CUMM (4-12)
[2021-01-06 07:58] LABS: Eosinophils 4 % (0-10); Hypochromasia 1+; Lymphocytes 9 % (20-55); Microcytosis 1+; Nucleated Red Blood Cells 3 (0-5); Platelet Estimate Adequate; Segmented Neutrophils 78 % (50-85); Total Cells Counted 100
[2021-01-06] MEDS: CLINDAMYCIN INJ 600 MG/50 ML PREMIX IV SCH ×2 (09:25→16:22)
[2021-01-06] MEDS: ENOXAPARIN 80 MG/0.8 ML SYRINGE SUBCUT SCH (09:26)
[2021-01-06] MEDS: PANTOPRAZOLE 40 MG VIAL IV SCH (09:27)
[2021-01-06] MEDS: CETIRIZINE 10 MG TABLET PO SCH (09:27)
[2021-01-06] MEDS: HYDROCORTISONE 1% CREAM 28 GM TUBE TOP SCH ×2 (09:28→21:00)
[2021-01-06] MEDS: SODIUM CHLORIDE 0.9% 1,000 ML IV SCH (09:28)
[2021-01-06] MEDS: MAGNESIUM HYDROXIDE SUSP 30 ML UDCUP PO PRN (09:45)
[2021-01-06] MEDS: KETOROLAC 30 MG/1 ML VIAL IV PRN (17:25)
[2021-01-07] MEDS: MORPHINE 4 MG/1 ML VIAL IV PRN ×7 (00:41→21:13)
[2021-01-07] MEDS: SODIUM CHLORIDE 0.9% 1,000 ML IV SCH ×2 (00:42→13:50)
[2021-01-07] MEDS: CLINDAMYCIN INJ 600 MG/50 ML PREMIX IV SCH ×3 (00:42→16:55)
[2021-01-07] MEDS: METOPROLOL TARTRATE 5 MG/5 ML VIAL IV SCH ×4 (00:42→13:39)
[2021-01-07] MEDS: KETOROLAC 30 MG/1 ML VIAL IV PRN (01:19)
[2021-01-07] MEDS: ENOXAPARIN 80 MG/0.8 ML SYRINGE SUBCUT SCH (02:00)
[2021-01-07] MEDS: traMADol 50 MG TABLET PO PRN (02:01)
[2021-01-07 08:15] LABS: Basophils % 0.2 % (0.0-0.8); Eosinophils # 0.1 10*3/uL (0.0-0.87); Eosinophils % 0.5 % (0.00-10.9); Hematocrit 18.4 VOL% (35.7-47.0); Immature Granulocytes % 3.2 %; Immature Granulocytes Absolute 0.59 #; Lymphocytes # 0.8 10*3/uL (1.4-4.0); Lymphocytes % 4.4 % (21.3-54.2); Mean Corpuscular HGB Conc 32.1 GM/DL (32-36); Mean Corpuscular Volume 84.8 FL (87-102); Mean Platelet Volume 10.3 FL (9.6-12.0); Monocytes % 5.1 % (1.7-12.7); NRBC # 0.43 10*3/uL; Neutrophils % 86.6 % (38.7-73.9); Platelet Count 216 T/CUMM (130-400); Red Blood Count 2.17 MC/CUMM (3.8-5.5); Red Cell Distribution Width 18.8 % (9.3-17.3); White Blood Count 18.4 T/CUMM (4-12)
[2021-01-07 08:18] LABS: Hemoglobin 5.9 GM/DL (12.0-16.0)
[2021-01-07 08:28] LABS: Eosinophils 2 % (0-10); Hypochromasia 2+; Lymphocytes 3 % (20-55); Macrocytosis Slight; Nucleated Red Blood Cells 3 (0-5); Platelet Estimate Adequate; Polychromasia Slight; Segmented Neutrophils 91 % (50-85); Total Cells Counted 100
[2021-01-07 08:37] LABS: Calcium 8.1 MG/DL (8.5-10.1); Osmolality,Calculated 275.8 MOS/KG (273-304); Potassium 4.6 MMOL/L (3.5-5.1)
[2021-01-07] MEDS ORDERED: SODIUM CHLORIDE 0.9% 1,000 ML IV PRN (10:41)
[2021-01-07] MEDS: CETIRIZINE 10 MG TABLET PO SCH (11:33)
[2021-01-07] MEDS: HYDROCORTISONE 1% CREAM 28 GM TUBE TOP SCH (11:40)
[2021-01-07] MEDS ORDERED: ETOMIDATE 20 MG/10 ML VIAL IV ONE ×2 (13:24→13:27)
[2021-01-07] MEDS ORDERED: SUCCINYLCHOLINE 200 MG/10 ML VIAL ONE (13:24)
[2021-01-07] MEDS ORDERED: SUCCINYLCHOLINE 200 MG/10 ML VIAL IV ONE (13:27)
[2021-01-07] MEDS ORDERED: ACETAMINOPHEN 325 MG TABLET PO PRN (13:27)
[2021-01-07] MEDS ORDERED: ALBUTEROL 2.5 MG/3 ML NEB RESP TX PRN (13:27)
[2021-01-07] MEDS ORDERED: NOREPINEPHRINE 8 MG in SODIUM CHLORIDE 0.9% 242 ML IV PRN (13:31)
[2021-01-07] MEDS ORDERED: NOREPINEPHRINE 4 MG/4 ML VIAL IV ONE (13:32)
[2021-01-07] MEDS: PANTOPRAZOLE 40 MG VIAL IV SCH (13:38)
[2021-01-07 13:39] LABS: Basophils % 0.1 % (0.0-0.8); Eosinophils # 0.1 10*3/uL (0.0-0.87); Eosinophils % 0.3 % (0.00-10.9); Immature Granulocytes % 5.9 %; Lymphocytes # 2.4 10*3/uL (1.4-4.0); Lymphocytes % 11.1 % (21.3-54.2); Mean Corpuscular HGB Conc 28.9 GM/DL (32-36); Mean Corpuscular Volume 91.8 FL (87-102); Mean Platelet Volume 10.4 FL (9.6-12.0); Monocytes % 5.2 % (1.7-12.7); NRBC # 1.34 10*3/uL; Neutrophils % 77.4 % (38.7-73.9); Platelet Count 140 T/CUMM (130-400); Red Blood Count 1.96 MC/CUMM (3.8-5.5); Red Cell Distribution Width 19.4 % (9.3-17.3); White Blood Count 22.1 T/CUMM (4-12)
[2021-01-07 13:42] LABS: Hemoglobin 5.2 GM/DL (12.0-16.0)
[2021-01-07 13:47] LABS: INR 1.2; PT Patient Result 13.6 SECS (10.5-12.0)
[2021-01-07] MEDS ORDERED: METOPROLOL TARTRATE 5 MG/5 ML VIAL IV PRN (14:00)
[2021-01-07 14:01] LABS: Alanine Aminotransferase 30 U/L (13-56); Albumin 1.7 G/DL (3.4-5.0); Alkaline Phosphatase 176 U/L (45-117); Aspartate Amino Transferase 35 U/L (0-37); Bilirubin,Total < 0.39 MG/DL (0.2-1.0); Blood Urea Nitrogen 25 MG/DL (7-18); Calcium 8.4 MG/DL (8.5-10.1); Carbon Dioxide 16 MMOL/L (21-32); Estimated Glom Filtration Rate 73 ML/MIN; Glucose 213 MG/DL (74-106); Osmolality,Calculated 279.1 MOS/KG (273-304); Potassium 5.3 MMOL/L (3.5-5.1); Sodium 135 MMOL/L (136-145)
[2021-01-07 14:19] LABS: ABG Base Excess -12.4 MMOL/L (-2.5-2.5); ABG HCO3 14.6 MMOL/L (20-26); ABG PCO2 34.6 MM HG (35-48); ABG PH 7.225 (7.35-7.45); ABG TCO2 13.8 MMOL/L (23-27)
[2021-01-07 14:20] LABS: Band Neutrophils 3 % (0-10); Lymphocytes 10 % (20-55); Nucleated Red Blood Cells 6 (0-5); Segmented Neutrophils 85 % (50-85); Total Cells Counted 100
[2021-01-07 14:24] LABS: Atypical Lymphocytes 1+; Hypochromasia 3+; Microcytosis 1+; Ovalocytes Few; Platelet Estimate Normal; Polychromasia 1+; Target Cells Few
[2021-01-07] MEDS ORDERED: SODIUM BICARBONATE 50 MEQ/50 ML VIAL IV ONE (14:52)
[2021-01-07 15:22] VITALS: BP 128/79
[2021-01-07] MEDS ORDERED: LORazepam 2 MG/1 ML VIAL ONE (15:46)
[2021-01-07] MEDS ORDERED: LORazepam 2 MG/1 ML VIAL IV ONE (15:48)
[2021-01-07] MEDS ORDERED: MORPHINE 4 MG/1 ML VIAL IV ONE (15:48)
[2021-01-07] MEDS ORDERED: INSULIN LISPRO 100 UNIT/ML SUBCUT SCH (18:00)
[2021-01-07] MEDS: LORazepam 2 MG/1 ML VIAL IV PRN ×3 (18:45→21:12)
== END 2021-01-07 21:15 | disposition expired | DRG 45 ==
LOC: N.ED 16:56 → N.EDINP 16:56 → N.4E 22:55 → SUATTDRO 12-30 16:10 → N.CC 01-07 13:24
PROVIDERS: ADMIT Emergency Medicine; ATTEND Family Medicine
PROC: IRTHORA (2020-12-31 15:15)